=== PATIENT | female | born 1960 | race Caucasian/White ===

== ENCOUNTER 2017-03-24 11:59 | Emergency (ER) | payer OTHER ==
[2017-03-24 12:22] VITALS: BP 151/83; PULSE 83; RESP 18; TEMP 99.3
[2017-03-24] MEDS ORDERED: KETOROLAC 30 MG/ML 1 ML VIAL IM STA (12:45)
--- NOTE | 2017-03-24 12:48 | ED ---
Neck Injury/Pain HPI - General Chief Complaint: Neck Pain/Injury Stated Complaint: neck pain Time Seen by Provider: 03/24/17 12:29 Mode of arrival: ambulatory Limitations: no limitations - History of Present Illness Initial Comments: 56-year-old female patient presents to emergency department today for evaluation of neck pain. Patient states that yesterday morning when she woke she felt like she had a stiff neck. She states she stretched while in bed, and felt a spasm to her left upper back and neck area. She states that she has been having pain since then. States today she is had multiple episodes where the muscle with spasm on her and cause pain. She states she did have similar symptoms in the past and was diagnosed with muscle spasm. She says she has been taking Aleve, applying ice, and applying heat without relief of symptoms. She states the pain increases with any movement of her head, or left arm. She states the area is tender. She denies any falls or injuries causing the pain. Patient denies any recent fever, chills, shortness breath, chest pain, abdominal pain, nausea, vomiting, diarrhea, constipation, numbness, tingling, headache, visual changes, hematuria, dysuria, urinary frequency, urinary urgency , or any other complaints. - Related Data Previous Rx's Medication Instructions Recorded Acetaminophen-Codeine 300-30mg 1 tab PO Q6H PRN #15 tablet 03/24/17 [Tylenol #3] Cyclobenzaprine [Flexeril] 10 mg PO TID #15 tab 03/24/17 Ibuprofen [Motrin] 600 mg PO Q8HR PRN #30 tab 03/24/17 Allergies Allergy/AdvReac Type Severity Reaction Status Date / Time No Known Allergies Allergy Verified 03/24/17 12:22 Review of Systems ROS Statement: Those systems with pertinent positive or pertinent negative responses have been documented in the HPI. ROS Other: All systems not noted in ROS Statement are negative. Past Medical History Past Medical History: No Reported History History of Any Multi-Drug Resistant Organisms: None Reported Past Surgical History: No Surgical Hx Reported Past Psychological History: No Psychological Hx Reported Smoking Status: Never smoker Past Alcohol Use History: Occasional Past Drug Use History: None Reported General Exam Limitations: no limitations General appearance: alert, in no apparent distress, other (This is a well- developed, well-nourished adult female patient in no acute distress. Vital signs upon presentation her temperature 99.3F, pulse 83, respirations 18, blood pressure 151/83, pulse ox 95% on room air.) Eye exam: Present: normal appearance, PERRL, EOMI. Absent: scleral icterus, conjunctival injection, periorbital swelling ENT exam: Present: normal exam, normal oropharynx, mucous membranes moist Neck exam: Present: normal inspection. Absent: tenderness, meningismus, full ROM (Decreased range of motion due to increased pain with movement.), lymphadenopathy Respiratory exam: Present: normal lung sounds bilaterally. Absent: respiratory distress, wheezes, rales, rhonchi, stridor Cardiovascular Exam: Present: regular rate, normal rhythm, normal heart sounds. Absent: systolic murmur, diastolic murmur, rubs, gallop, clicks Back exam: Present: normal inspection, tenderness (Over the left upper trapezius muscle.), muscle spasm (The upper trapezius) Neurological exam: Present: alert, oriented X3, CN II-XII intact Psychiatric exam: Present: normal affect, normal mood Skin exam: Present: warm, dry, intact, normal color. Absent: rash Course Vital Signs 03/24/17 12:19 Temperature 99.3 F Pulse Rate 83 Respiratory 18 Rate Blood Pressure 151/83 O2 Sat by Pulse 95 Oximetry Medical Decision Making - Medical Decision Making 56-year-old female patient presented for evaluation of left upper back and neck spasm. Physical examination was unremarkable. Patient did have some muscle tightness and tenderness over the left upper trapezius muscle. She will be given a Toradol injection here in the department as she is driving herself at this time. She will be given prescriptions for Tylenol 3 with codeine, Flexeril , and ibuprofen. I did instruct her to apply warm moist heat to the area 20 minutes at a time at least 4 times daily. I instructed her to use over-the- counter muscle rubs for pain relief. I also instructed her to do gentle stretching exercises when symptoms improve. She is instructed to follow-up with her primary care physician for recheck in 1-2 days. She is instructed to return here immediately for any new, worsening, or concerning symptoms. She verbalizes understanding and agrees this plan. Disposition Clinical Impression: Muscle spasms of neck Disposition: HOME SELF-CARE Condition: Good Instructions: Muscle Spasm (ED) Additional Instructions: Apply warm moist heat to the painful areas. Use [id number] muscle rubs. Take medications as directed. Follow-up with her primary care physician for recheck in 1-2 days. Return here immediately for any new, worsening, or concerning symptoms. Prescriptions: Acetaminophen-Codeine 300-30mg [Tylenol #3] 1 tab PO Q6H PRN #15 tablet PRN Reason: Pain Cyclobenzaprine [Flexeril] 10 mg PO TID #15 tab Ibuprofen [Motrin] 600 mg PO Q8HR PRN #30 tab PRN Reason: Pain Referrals: Pham Moses DO [Primary Care Provider] - 1-2 days Time of Disposition: 12:48
== END 2017-03-24 13:08 | disposition home or self-care (01) ==
LOC: EC 11:59
DX: M62.838 Other muscle spasm (principal)
CPT/HCPCS: 99283 ×2; 96372 ×2; J1885

== ENCOUNTER → 2017-07-17 | Outpatient (CLI) | payer OTHER ==
--- NOTE | 2017-07-18 12:40 | MM ---
Reason for exam: screening (asymptomatic). Last mammogram was performed 8 years and 1 month ago. History: Patient is postmenopausal and had first child at age 41. Physical Findings: A clinical breast exam by your physician is recommended on an annual basis and results should be correlated with mammographic findings. MG Screening Mammo w CAD Bilateral CC and MLO view(s) were taken. Prior study comparison: June 29, 2009, bilateral digital screening mammogram. September 24, 2006, workup left diagnostic mammogram. There are scattered fibroglandular densities. No suspicious abnormality in the left breast. There is a 6mm superior right breast asymmetry at middle posterior depth. ASSESSMENT: Incomplete: need additional imaging evaluation, BI-RAD 0 RECOMMENDATION: Special view mammogram of the right breast. If lesion persists on supplemental views, image directed ultrasound is recommended. [facility] will attempt to contact patient to return for supplemental views and ultrasound if indicated.
== END | disposition home or self-care (01) ==
LOC: RADMAMWWP 08:52
PROVIDERS: ATTEND Family Medicine
DX: Z12.31 Encounter for screening mammogram for malignant neoplasm of breast (principal)
CPT/HCPCS: 77067

== ENCOUNTER → 2017-07-30 | Outpatient (CLI) | payer OTHER ==
--- NOTE | 2017-07-30 08:17 | MM ---
Reason for exam: additional evaluation requested from abnormal screening. Last mammogram was performed less than 1 month ago. History: Patient is postmenopausal and had first child at age 41. Physical Findings: Nurse did not find any significant physical abnormalities on exam. MG Work Up Mamm w CAD RT Spot compression CC, spot compression MLO, and ML view(s) were taken of the right breast. Prior study comparison: July 17, 2017, bilateral MG screening mammo w CAD. June 29, 2009, bilateral digital screening mammogram. There are scattered fibroglandular densities. These results were verbally communicated with the patient and result sheet given to the patient on 07/30/17. ASSESSMENT: Probably benign, BI-RAD 3 RECOMMENDATION: Follow-up diagnostic mammogram of the right breast in 6 months.
== END | disposition home or self-care (01) ==
LOC: RADMAMWWP 06:56
PROVIDERS: ATTEND Family Medicine
DX: R92.8 Other abnormal and inconclusive findings on diagnostic imaging of breast (principal)
CPT/HCPCS: 77065